=== PATIENT | male | born 1965 | race Caucasian/White ===

== ENCOUNTER 2017-04-18 08:06 | Emergency (ER) | payer BC, MEDICARE ==
[2017-04-18 08:22] VITALS: O2SAT 97
[2017-04-18] MEDS ORDERED: XYLOCAINE 1% HCL 20 ML MDV IJ ONE (08:28)
[2017-04-18] MEDS ORDERED: XYLOCAINE 1% HCL 20 ML MDV ONE (08:29)
[2017-04-18] MEDS ORDERED: BACIGUENT PACKET TP ONE (08:40)
[2017-04-18] MEDS ORDERED: BACIGUENT PACKET ONE (08:42)
--- NOTE | 2017-04-18 08:48 | ERPHSYRPT ---
- History of Present Illness Time Seen by Provider: 04/18/17 08:24 Source: patient Exam Limitations: no limitations Patient Subjective Stated Complaint: pt states on 04/17/17 he was moving a board and got a splinter underneath left index finger. Triage Nursing Assessment: pt pink, warm, dry. foreign body noted to left index figer under nail. no swelling or redness noted. Physician History: 51-year-old white male arrives with complaint of a splinter underneath his left index fingernail symptoms since yesterday. Patient states that he was unloading a lawn more the went to reach for the boards for unloading the lawn more and got a splinter underneath his left index fingernail. He states he tried to remove it himself but was unable to he complains of pain and splinter under his left index fingernail. He denies any other complaints. His last tetanus was 3 years ago. Past medical history includes myotonic dystrophy. Past surgical history includes carpal tunnel bilateral cataracts. Occurred: yesterday Method of Injury: other (unloading a lawnmower ran a splinter from a board under his left fingernail) Quality: sharpness Severity of Pain-Max: moderate Severity of Pain-Current: mild Extremities Pain Location: 2nd finger: left Modifying Factors: Improves With: nothing Associated Symptoms: none Allergies/Adverse Reactions: No Known Drug Allergies Allergy (Verified 04/18/17 08:23) Home Medications: No Home Meds [id number] .ROUTE ZPACK 03/21/13 [History] Hx Tetanus, Diphtheria Vaccination/Date Given: Yes (up to date) Hx Influenza Vaccination/Date Given: No Hx Pneumococcal Vaccination/Date Given: No Immunizations Up to Date: Yes - Review of Systems Constitutional: No Fever, No Chills Eyes: No Symptoms Ears, Nose, & Throat: No Symptoms Respiratory: No Cough, No Dyspnea Cardiac: No Chest Pain, No Edema, No Syncope Abdominal/Gastrointestinal: No Abdominal Pain, No Nausea, No Vomiting, No Diarrhea Genitourinary Symptoms: No Dysuria Musculoskeletal: Other (splinter under left index finger) Skin: Other (splinter under her left index finger) Neurological: No Dizziness, No Focal Weakness, No Sensory Changes Psychological: No Symptoms Endocrine: No Symptoms All Other Systems: Reviewed and Negative - Past Medical History Pertinent Past Medical History: Yes Neurological History: Other Other Medical History: muotonic muscular dystophey - Past Surgical History Past Surgical History: Yes Other Surgical History: CARPAL TUNNEL BILATERAL, TENDER AROUND LEFT WRIST, CATARACT SURGERY BOTH EYES - Social History Smoking Status: Never smoker Exposure to second hand smoke: No Drug Use: none Patient Lives Alone: No - Nursing Vital Signs Nursing Vital Signs: Initial Vital Signs Temperature 98.0 F 04/18/17 08:19 Pulse Rate 74 04/18/17 08:19 Respiratory Rate 20 04/18/17 08:19 Blood Pressure 117/83 04/18/17 08:19 O2 Sat by Pulse Oximetry 97 04/18/17 08:19 Pain Scale Pain Intensity 0 - Physical Exam General Appearance: alert Eyes, Ears, Nose, Throat Exam: moist mucous membranes Neck Exam: non-tender, supple Cardiovascular/Respiratory Exam: chest non-tender, normal breath sounds, regular rate/rhythm, no respiratory distress Abdominal Exam: non-tender, No guarding Back Exam: normal inspection, No vertebral tenderness Shoulder Exam: normal inspection, non-tender, no evidence of injury, normal ROM Elbow/Forearm Exam: normal inspection, non-tender, no evidence of injury, normal ROM Wrist Exam: normal inspection, non-tender, no evidence of injury, normal ROM Hand Exam: normal ROM, No normal inspection (patient was a small splinter approximately 2 mm x 1 underneath the distal end of his left index finger nail) Neuro/Tendon Exam: normal sensation, normal motor functions Mental Status Exam: alert, oriented x 3, cooperative Skin Exam: normal color, warm, dry, other (Patient with a 1 x 2 mm underneath his left distal index fingernail) SpO2 Interpretation: normal (97%) SpO2: 97 Oxygen Delivery: Room Air - Course Nursing assessment & vital signs reviewed: Yes Ordered Tests: Active Orders 24 hr Category Date Time Status Wound Care STAT Care 04/18/17 08:28 Active Medication Summary Discontinued Medications Generic Name Dose Route Start Last Admin Trade Name Freq PRN Reason Stop Dose Admin Bacitracin 0.9 gm 04/18/17 08:40 04/18/17 08:45 Baciguent Packet TP 04/18/17 08:41 0.9 gm STAT ONE Administration Bacitracin Confirm 04/18/17 08:42 Baciguent Packet Administered 04/18/17 08:43 Dose 1 gm .ROUTE .STK-MED ONE Lidocaine HCl 5 ml 04/18/17 08:28 04/18/17 08:45 Xylocaine 1% Hcl 20 Ml Mdv IJ 04/18/17 08:29 5 ml STAT ONE Administration Lidocaine HCl Confirm 04/18/17 08:29 Xylocaine 1% Hcl 20 Ml Mdv Administered 04/18/17 08:30 Dose 5 ml .ROUTE .STK-MED ONE - Progress Progress: improved Progress Note: 04/18/17 08: This is a 51-year-old white male he arrives with complaint of pain in his left index finger since yesterday after the ran a splinter up under the nail he's been unable to remove it himself. His tetanus is up-to-date.. Removal of splinter from under her left distal index fingernail: Left distal index finger sterilely cleansed and draped. One percent lidocaine used for local anesthesia. Adson forceps used to remove the splinter from under the distal left index fingernail. A small amount of yellow fluid was seen upon anesthetized finger. Left distal index finger was cleansed again bacitracin was applied dressing was applied by the patient's nurse. - Departure Time of Disposition: 08:48 Departure Disposition: Home Clinical Impression: splinter left index finger nailbed, Splinter removal Condition: Fair Critical Care Time: No Referrals: STEFANY MARTINES MD [Primary Care Provider] - Additional Instructions: Return home. Clean area and apply bacitracin daily. Tylenol every 4 hours as needed for pain. Keflex 500 mg orally 3 times a day for 10 days. Follow-up with your family doctor or return if signs of infection or problems. Return for acute distress or for severe symptoms. Prescriptions: Cephalexin Mh 500 mg [Keflex 500 mg] 500 mg PO TID #30 capsule
[2017-04-18 09:16] VITALS: BP 113/79; PULSE 76
== END 2017-04-18 09:00 | disposition home or self-care (01) ==
LOC: ED 08:06
DX: S60.451A Superficial foreign body of left index finger, initial encounter (principal)
CPT/HCPCS: 99283; A9270-GY

== ENCOUNTER 2020-09-08 06:52 | Emergency (ER) | payer BC, MEDICARE ==
[2020-09-08 07:10] VITALS: PULSE 86
--- NOTE | 2020-09-08 07:34 | ERPHSYRPT ---
- History of Present Illness Time Seen by Provider: 09/08/20 07:31 Source: patient Exam Limitations: no limitations Patient Subjective Stated Complaint: Fall- Left shoulder injury Triage Nursing Assessment: Patient brought back to ED in w/c and transferred self to bed. Patient A+O X3. Patient complains of a fall around 0530. Patient states he slipped on the ice landing on his right shoulder. Patient also states he layed in the cold for around 30 minutes. Patient has notable deformity to left shoulder. Patient complaisn of left shoulder pain constant sharp pain 10/10. Patient states he hit his head on the running board of his truck. Physician History: Fall- Left shoulder injury just 2 hrs ago. Patient complains of a fall around 0530. Patient states he slipped on the ice landing on his right shoulder. Patient also states he layed in the cold for around 30 minutes. Patient has notable deformity to left shoulder. Patient complains of left shoulder pain constant sharp pain 10/10. Patient states he hit his head on the running board of his truck. no visible deformity on shoulder. no visible injury on head Occurred: just prior to arrival Method of Injury: fell Quality: constant Severity of Pain-Max: moderate Severity of Pain-Current: moderate Extremities Pain Location: shoulder: left Modifying Factors: Improves With: nothing Associated Symptoms: none Allergies/Adverse Reactions: No Known Drug Allergies Allergy (Verified 09/08/20 07:02) Home Medications: No Home Meds [No Home Meds] [id number] .ROUTE ZPACK 03/21/13 [History] Hx Tetanus, Diphtheria Vaccination/Date Given: Yes (up to date) Hx Influenza Vaccination/Date Given: No Hx Pneumococcal Vaccination/Date Given: No Immunizations Up to Date: Yes Travel Risk - International Travel Have you traveled outside of the country in past 3 weeks: No - Coronavirus Screening Are you exhibiting any of the following symptoms?: No Close contact with a COVID-19 positive Pt in past 14-21 Days: No - Review of Systems Constitutional: No Fever, No Chills Eyes: No Symptoms Ears, Nose, & Throat: No Symptoms Respiratory: No Cough, No Dyspnea Cardiac: No Chest Pain, No Edema, No Syncope Abdominal/Gastrointestinal: No Abdominal Pain, No Nausea, No Vomiting, No Diarrhea Genitourinary Symptoms: No Dysuria Musculoskeletal: Fall, No Back Pain, No Neck Pain Skin: No Rash Neurological: No Dizziness, No Focal Weakness, No Sensory Changes Psychological: No Symptoms Endocrine: No Symptoms All Other Systems: Reviewed and Negative - Past Medical History Pertinent Past Medical History: Yes Neurological History: Other Other Medical History: muotonic muscular dystophey - Past Surgical History Past Surgical History: Yes Other Surgical History: CARPAL TUNNEL BILATERAL, TENDER AROUND LEFT WRIST, CATARACT SURGERY BOTH EYES, triple hernia surgery, gallbladder removal - Social History Smoking Status: Never smoker Exposure to second hand smoke: No Drug Use: none Patient Lives Alone: No - Nursing Vital Signs Nursing Vital Signs: Initial Vital Signs Temperature 98.3 F 09/08/20 07:03 Pulse Rate 86 09/08/20 07:03 Respiratory Rate 18 09/08/20 07:03 Blood Pressure 128/72 09/08/20 07:03 O2 Sat by Pulse Oximetry 95 09/08/20 07:03 Pain Scale Pain Intensity 10 - Physical Exam General Appearance: alert Eyes, Ears, Nose, Throat Exam: moist mucous membranes Neck Exam: non-tender, supple Cardiovascular/Respiratory Exam: chest non-tender, normal breath sounds, regular rate/rhythm, no respiratory distress Abdominal Exam: non-tender, No guarding Back Exam: normal inspection, No vertebral tenderness Shoulder Exam: limited ROM, soft tissue tenderness Elbow/Forearm Exam: normal inspection Wrist Exam: normal inspection Hand Exam: normal inspection Neuro/Tendon Exam: normal sensation, normal motor functions Mental Status Exam: alert, oriented x 3, cooperative Skin Exam: normal color, warm, dry SpO2: 95 - Course Nursing assessment & vital signs reviewed: Yes - Radiology Exams Shoulder X-ray Interpretation: Reviewed by me (left clavicular fracture) Ordered Tests: Active Orders 24 hr Category Date Time Status SHOULDER Stat Exams 09/08/20 07:32 Taken - Progress Progress: improved, pain not gone completely Counseled pt/family regarding: diagnosis, need for follow-up (ortho clinic on friday), rad results - Departure Departure Disposition: Home Clinical Impression: Fracture of clavicle, acromial end, closed Qualifiers: Encounter type: initial encounter Fracture alignment: displaced Laterality: left Qualified Code(s): S42.032A - Displaced fracture of lateral end of left clavicle, initial encounter for closed fracture Condition: Stable Critical Care Time: No Referrals: INDERJIT HANSON [Primary Care Provider] - [facility]-Ortho M-F [id number] Instructions: Shoulder Fracture (DC) Additional Instructions: Discharge/Care Plan VALERY BUTT was seen on 09/08/20 in the Emergency Room. The patient was counseled regarding Diagnosis,Lab results, Imaging studies, need for follow up and when to return to the Emergency Room. Prescriptions given: Discharge Note I have spoken with the patient and/or caregivers. I have explained the patient's condition, diagnosis and treatment plan based on the information available to me at this time. I have answered the patient's and/or caregiver's questions and addressed any concerns. The patient and/or caregivers have as good understanding of the patient's diagnosis, condition and treatment plan as can be expected at this point. The vital signs have been stable. The patient's condition is stable and appropriate for discharge from the emergency department. The patient will pursue further outpatient evaluation with the primary care physician or other designated or consulting physician as outlined in the discharge instructions. The patient and/or caregivers are agreeable to this plan of care and follow-up instructions have been explained in detail. The patient and/or caregivers have received these instruction. The patient/and or caregivers are aware that any significant change in condition or worsening of symptoms should prompt an immediate return to this or the closest emergency department or call 911. VALERY BUTT was seen on 09/08/20 n the Emergency Room. At that time you were treated for an emergent condition, during your visit Laboratory, Radiology and/or other procedures may have been ordered. It is very important that you follow-up with your Primary Care Physician INDERJIT HANSON within the next 24- 48 hours to review your Emergency Room visit and the final results of testing that was ordered. Some test results such as Urine Cultures, Blood Cultures, and other cultures if ordered will not be finalized for 24-48 hours. If you do not have a Primary Care Provider please call the medical records department at [phone] ext [phone] to obtain a copy of your results or you may sign into our patient portal to obtain these results by visiting us @ [email or web address] and completing the following steps: 1. Click on the Patient Portal link 2. Click the Patient Self Enrollment Link to complete the enrollment form and entering your 3. Once the enrollment form is completed you will receive an email with a temporary ID and password at the email address you provided. 4. Next choose a user name and password. Your user name must be at least 4 characters long and your password must be at least 4 characters long. 5. Choose a security question from the list and provide your answer to the question. If you already have signed into the Health Portal you may access your Health Care Information 31/03 by the following steps: 1. Login to our website @ [email or web address] 2. Enter your original user name and password. FAQS The [facility] Health Portal is an online tool that contains your Lab Results, Radiology Reports, Visit History, Discharge Instructions and Health Summary Lab and Radiology Results will not be available for 72 hours on the portal. The Portal is a secure site, passwords are encryted and URLs are re-written so they cannot be copied and pasted. You and authorized family members are the only ones who can access your Portal. Also there is a timeout feature that protects your information if you leave the Portal page open. If you have technical difficulty please use the Contact Us link on the page this will allow you to submit any questions you have regarding the Portal or you may contact the Medical Record Department at [phone] ext [phone]. Prescriptions: Naproxen 375 mg [Naprosyn 375 mg] 375 mg PO Q8H #30 tablet
[2020-09-08 08:26] VITALS: BP 121/82; O2SAT 93
--- NOTE | 2020-09-08 10:40 | XRAY ---
Indication: Pain following fall. Comparison: None 3 view left shoulder demonstrates mildly displaced distal clavicle shaft fracture. 1.3 cm ossification projects inferior to glenohumeral joint either degenerative versus old injury versus calcified node. No other bony, articular, or soft tissue abnormalities. Comment: Preliminary interpretation was made by [facility] who does not report incidental ossification.
== END 2020-09-08 08:41 | disposition home or self-care (01) ==
LOC: ED 06:52
DX: S42.032A Displaced fracture of lateral end of left clavicle, initial encounter for closed fracture (principal); M25.512 Pain in left shoulder; W00.0XXA Fall on same level due to ice and snow, initial encounter
CPT/HCPCS: 36000; 73030; 99284

== ENCOUNTER 2021-05-13 16:50 | Emergency (ER) | payer BC, OTHER, MEDICARE ==
--- NOTE | 2021-05-13 16:54 | ERPHSYRPT ---
- History of Present Illness Time Seen by Provider: 05/13/21 16:54 Source: patient, family Exam Limitations: no limitations Physician History: There is a 56-year-old white male with some muscular dystrophy issues who fell and hit the top of his head today. Patient has no known drug allergies. He is not on any blood thinning medication. Patient complains of headache and neck pain. He did not lose consciousness. He did suffer a laceration to the top of his scalp. Timing/Duration: today Quality: painful Severity: mild Location: scalp Possible Causes: other (Blunt trauma) Associated Symptoms: denies symptoms Allergies/Adverse Reactions: No Known Drug Allergies Allergy (Verified 05/13/21 16:58) Home Medications: No Home Meds [No Home Meds] [id number] .ROUTE ZPACK 03/21/13 [History] Hx Tetanus, Diphtheria Vaccination/Date Given: Yes (up to date) Hx Influenza Vaccination/Date Given: No Hx Pneumococcal Vaccination/Date Given: No Travel Risk - International Travel Have you traveled outside of the country in past 3 weeks: No - Coronavirus Screening Are you exhibiting any of the following symptoms?: No Close contact with a COVID-19 positive Pt in past 14-21 Days: No - Review of Systems Constitutional: No Symptoms Eyes: No Symptoms Ears, Nose, & Throat: No Symptoms Respiratory: No Symptoms Cardiac: No Symptoms Abdominal/Gastrointestinal: No Symptoms Genitourinary Symptoms: No Symptoms Musculoskeletal: No Symptoms Skin: Other (Laceration top of scalp) Neurological: No Symptoms Psychological: No Symptoms Endocrine: No Symptoms Hematologic/Lymphatic: No Symptoms Immunological/Allergic: No Symptoms All Other Systems: Reviewed and Negative - Past Medical History Pertinent Past Medical History: Yes Neurological History: Other Other Medical History: muotonic muscular dystophey - Past Surgical History Past Surgical History: Yes Other Surgical History: CARPAL TUNNEL BILATERAL, TENDER AROUND LEFT WRIST, CATARACT SURGERY BOTH EYES, triple hernia surgery, gallbladder removal - Social History Smoking Status: Never smoker Exposure to second hand smoke: No Drug Use: none Patient Lives Alone: No - Nursing Vital Signs Nursing Vital Signs: Initial Vital Signs Blood Pressure 147/70 05/13/21 16:52 Pain Scale Pain Intensity 7 - Physical Exam General Appearance: no apparent distress, alert, anxiety Eye Exam: PERRL/EOMI, eyes nml inspection Ears, Nose, Throat Exam: normal ENT inspection, moist mucous membranes Neck Exam: normal inspection, non-tender, supple, full range of motion Respiratory Exam: normal breath sounds, lungs clear, airway intact, No chest tenderness, No respiratory distress Cardiovascular Exam: regular rate/rhythm, normal heart sounds, normal peripheral pulses Gastrointestinal/Abdomen Exam: soft, normal bowel sounds, No tenderness Rectal Exam: not done Back Exam: normal inspection, normal range of motion, No CVA tenderness, No vertebral tenderness Extremity Exam: normal inspection, normal range of motion, pelvis stable Neurologic Exam: alert, oriented x 3, cooperative, family life counselor II-XII nml as tested, normal mood/affect, nml cerebellar function, nml station & gait, sensation nml Skin Exam: laceration (Top of scalp approximately 3 cm in length. It is clean. There is no active bleeding. There is no obvious foreign bodies. The laceration was evaluated to the base) Lymphatic Exam: No adenopathy SpO2 Interpretation: normal O2 Delivery: Room Air Procedures - Laceration/Wound Repair Head Time of Procedure: 17:15 Wound Location: head Wound Length (cm): 3 Wound's Depth, Shape: superficial Wound Explored: clean (No foreign body noted. Evaluation of bloodless field to base) Irrigated: Yes Hibiclens Prep: Yes Wound Repaired With: Rifton (4. Rifton) - Course Nursing assessment & vital signs reviewed: Yes Ordered Tests: Active Orders 24 hr Category Date Time Status CERVICAL SPINE WO CONTRAST [CT] Stat Exams 05/13/21 17:19 Taken HEAD WITHOUT CONTRAST [CT] Stat Exams 05/13/21 17:19 Taken Medication Summary Discontinued Medications Generic Name Dose Route Start Last Admin Trade Name [place] PRN Reason Stop Dose Admin Hydrocodone Bitart/Acetaminophen 1 tab 05/13/21 18:13 05/13/21 18:19 [place] 5/325 Mg PO 05/13/21 18:14 1 tab STAT ONE Administration Hydrocodone Bitart/Acetaminophen Confirm 05/13/21 18:17 [place] 5/325 Mg Administered 05/13/21 18:18 Dose 1 tab .ROUTE .STK-MED ONE Hydrocodone Bitart/Acetaminophen 2 tab 05/13/21 18:22 05/13/21 18:33 [place] 5/325 Mg PO 05/13/21 18:23 2 tab SENT HOME W/ PATIENT ONE Administration Hydrocodone Bitart/Acetaminophen Confirm 05/13/21 18:31 [place] 5/325 Mg Administered 05/13/21 18:32 Dose 2 tab .ROUTE .STK-MED ONE Bacitracin Zinc 0.9 gm 05/13/21 17:20 05/13/21 17:23 Baciguent Packet TP 05/13/21 17:21 0.9 gm STAT ONE Administration Bacitracin Zinc Confirm 05/13/21 17:22 Baciguent Packet Administered 05/13/21 17:23 Dose 1 gm .ROUTE .STK-MED ONE - Progress Progress: improved, re-examined Progress Note: 05/13/21 17:36 Patient is refusing placement of cervical spine collar. 05/13/21 18:38 CAT scan of the head without contrast shows no acute intracranial findings. There is a sclerotic lesion involving the left sphenoid bone. This finding was discussed with the patient and his spouse they will follow-up as an outpatient with her primary care physician for further studies and work-up. CAT scan of the cervical spine shows no acute findings. There are degenerative changes present. Counseled pt/family regarding: diagnosis, need for follow-up, rad results - Departure Departure Disposition: Home Clinical Impression: Scalp laceration, Sphenoid cyst, left Condition: Stable Critical Care Time: No Referrals: INDERJIT HANSON [Primary Care Provider] - Additional Instructions: Take medication as prescribed. May remove dressing in 24 hours. After 24 hours, remove the dressing and may wash the site daily with soap and water and reapply a thin layer of antibiotic ointment and cover with a bandage. Staple removal in 8 to 10 days. Follow-up with your primary care physician for further management and further work-up of the left sphenoid bone finding. Prescriptions: Hydrocodone/APAP 5/325 [[place] 5/325 mg] 1 each PO Q8H PRN PRN #6 tablet MDD 3 PRN Reason: Pain
[2021-05-13] MEDS ORDERED: BACIGUENT PACKET TP ONE (17:20)
[2021-05-13] MEDS ORDERED: BACIGUENT PACKET ONE (17:22)
[2021-05-13] MEDS ORDERED: NORCO 5/325 MG PO ONE ×2 (18:13→18:22)
[2021-05-13] MEDS ORDERED: NORCO 5/325 MG ONE ×2 (18:17→18:31)
[2021-05-13 18:29] VITALS: BP 114/69
[2021-05-13 19:05] VITALS: PULSE 89; O2SAT 94
--- NOTE | 2021-05-13 21:21 | XRAY ---
Indication: Head injury/laceration following injury. Multiple contiguous axial images obtained through the head without contrast. Comparison: None. Age-appropriate global atrophy and minimal periventricular degenerative micro-ischemia bilaterally. No acute intracranial hemorrhage, abnormal extra-axial fluid collection, or mass effect. Fourth ventricle is midline without hydrocephalus. Multiple scalp cutaneous tino near the vertex. Bony calvarium intact. Visualized paranasal sinuses and mastoid air cells are clear. Impression: Atrophy and degenerative micro-ischemia within normal limits for patient's age. No acute intracranial abnormalities. Comment: Preliminary interpretation made by [facility]. No critical discrepancy.
--- NOTE | 2021-05-13 21:23 | XRAY ---
Indication: Head injury/laceration following injury. Multiple contiguous axial images obtained through the cervical spine. Sagittal and coronal reformatted images obtained. Comparison: None. Axial images negative for acute fracture, suspicious bony lesions, or spinal canal stenosis. Minimal multilevel degenerative endplate spurring. Facets are symmetric. Sagittal and coronal reformatted images demonstrate normal alignment with vertebral body heights/disc spaces maintained. No acute compression fracture, so excision, or jumped facet. Normal appearing craniocervical junction. Visualized noncontrasted soft tissues including on apices are unremarkable. Impression: 1. Multilevel degenerative changes. 2. Negative acute fracture/subluxation. Comment: Preliminary interpretation made by [facility]. No critical discrepancy.
== END 2021-05-13 19:05 | disposition home or self-care (01) ==
LOC: ED 16:50
DX: J34.1 Cyst and mucocele of nose and nasal sinus (principal)
CPT/HCPCS: 70450; 72125; 99284; A9270-GY